=== PATIENT | female | born 1995 | race African-American/Black ===

== ENCOUNTER 2018-02-17 13:24 | Emergency (ER) | payer SELFPAY ==
[2018-02-17 14:46] LABS: Bilirubin Negative (Negative); Blood, Urine Negative (Negative); Clarity CLEAR (Clear); Glucose, Urine (Dipstick) Negative (Negative); Leukocyte Negative (Negative); Nitrite Negative (Negative); Protein, Urine (Dipstick) Negative (Neg-Trace)
[2018-02-17 14:50] LABS: Pregnancy Test - Urine (BHCG) Negative (Negative); Pregu Control Background? CLEAR/WHITE (CLR/WHITE); Pregu Control Bar Appear? YES (CONTROL BAR)
[2018-02-17] MEDS ORDERED: Azithromycin 250 MG TAB ONE ×2 (15:42→15:43)
[2018-02-17] MEDS ORDERED: cefTRIAXone\\ROCEPHIN 1 GM VIAL IM SCH (16:00)
[2018-02-17] MEDS ORDERED: Lidocaine 1% PF 5 ML VIAL ONE (16:11)
[2018-02-19 19:56] LABS: Chlamydia by PCR Not Detected (NotDetected); GC by PCR Not Detected (NotDetected)
== END 2018-02-17 16:39 | disposition home or self-care (01) ==
LOC: ERS 13:24
DX: N72 Inflammatory disease of cervix uteri (principal)
CPT/HCPCS: 81003; 81025; 87480; 87491; 87510; 87591; 87660; 96372; J0696; J2001